=== PATIENT | female | born 1960 | race Caucasian/White ===

== ENCOUNTER 2016-08-14 13:01 | Day surgery (SDC) | payer MEDICAID ==
[~2016-08-14] VITALS: Ht 165.1 cm; Wt 71.7 kg
[~2016-08-14 13:01] MED LIST: AMLODIPINE BES10 MG PO; CYCLOBENZAPRINE10 M2 PO; DIAZEPAM5 MG PO; GABAPENTIN300 M1 PO; HYDROCODONE BIT1 T45 PO; HYDROCODONE-APA1 TA1 PO; LORTAB 5/3251 TAB PO; NAPROSYN 500MG500 MG PO; PEN-VK500 MG PO; ROBAXIN-750750 MG PO; TRAZODONE HCL100 MG PO; VALIUM 5MG TABLE5 MG PO; WELLBUTRIN 100100 M1 PO; WELLBUTRIN 150150 MG PO
[2016-08-14 13:24] VITALS: BP 166/91
[2016-08-14] MEDS ORDERED: WELLBUTRIN 150150 MG PO (13:34)
[2016-08-14 13:50] VITALS: BP 166/91
[2016-08-14 14:00] VITALS: BP 139/89
--- NOTE | 2016-08-14 14:07 | Procedure Note ---
Procedure detail Date of procedure: 08/14/16 Anesthesiologist: Behzad Francis CRNA Complications: None Pre-procedure diagnosis: Cervical Facet Arthropathy Post-procedure diagnosis: Same Indications for procedure: This patient's pleasant 56-year-old white female that we've been treating her pain clinic for chronic cervical neck pain secondary to degenerative disc disease cervical spine multiple levels with cervical spondylosis. Multilevel cervical facet arthropathy. Patient is status post 2 rounds of cervical medial branch block which she reports significant improvement. Her last round was January 2016. Patient presents to the clinic today with increased pain cervical neck. She describes it as constant, dull, aching. She rates the pain in neck 6/10. She is having difficulty looking LEFT and RIGHT as well as flexion and extension intensifies the pain. Also, patient having with resection from the RIGHT breast secondary to mass. She is extremely nervous about this. She wants to repeat the branch blocks cervical spine but in the near future after recovering from surgery tomorrow. We will perform a therapeutic medial branch block today Procedure detail: Informed consent was obtained and the risk and benefits of the procedure was explained to the patient. Patient was taken to the procedure room where noninvasive monitors were placed, including noninvasive blood pressure cuff as well as pulse oximeter. Markers were placed over the facet joints at C5-6, C6-7, C7-T1 bilaterally. The area over the posterior cervical spine was cleansed using chlorhexidine as a cleansing solution. I anesthetized the skin and subcutaneous tissues with 1% Lidocaine at each marker site. I placed 22-gauge spinal needles into the facet joint/ medial branches of C5-C6, C6-C7, C7-T1 bilaterally. Needle placement was confirmed with fluoroscopy. After confirmation of needle placement , each site was injected with 1 mL of 1% lidocaine and 0.25 % Marcaine and 10 mg of Depo-Medrol. A total of 80 mg of depo medrol was used for bilateral medial branch blocks of C5-C6, C6-C7, C7-T1 bilaterally. Patient tolerated the procedure without difficulty. There were no complications. Plan and disposition: I am patient was reevaluated 10 minutes post procedure. Patient reports 90 percent improvement terms for cervical neck pain in flexion, extension, RIGHT and LEFT rotation. We will follow up with this patient in our clinic and reassess her symptoms at that time at [id number]
[2016-08-17] MEDS ORDERED: HYDROCODONE BIT1 T45 PO (10:57)
[2016-09-10] MEDS ORDERED: ANASTROZOLE (13:36)
[2016-09-10] MEDS ORDERED: HYDROCODONE BIT1 T45 PO (13:45)
== END 2016-08-14 14:30 ==
LOC: PM 13:01
PROC: 3E0T3BZ Introduction of Anesthetic Agent into Peripheral Nerves and Plexi, Percutaneous Approach (ICD-10-PCS; principal; 2016-08-14)
PROC: 3E0T33Z Introduction of Anti-inflammatory into Peripheral Nerves and Plexi, Percutaneous Approach (ICD-10-PCS; 2016-08-14)
DX: M46.92 Unspecified inflammatory spondylopathy, cervical region (principal)
CPT/HCPCS: J1040

== ENCOUNTER → 2016-11-20 | Outpatient (CLI) | payer MEDICAID ==
[~2016-11-20] MED LIST changes: +ANASTROZOLE
[2016-11-20 13:26] LABS: AMPHETAMINES/METAMPHETAMINES NEGATIVE ng/mL (<1000)
== END ==
LOC: LAB 11:21
PROVIDERS: Anesthesiology
DX: Z79.899 Other long term (current) drug therapy (principal)

== ENCOUNTER 2016-12-04 13:00 | Day surgery (SDC) | payer MEDICAID ==
[~2016-12-04] VITALS: Ht 165.1 cm; Wt 74.8 kg
[2016-12-04 13:34] VITALS: BP 125/78
[2016-12-04 13:58] VITALS: BP 125/78
[2016-12-04 13:59] VITALS: BP 135/87
--- NOTE | 2016-12-04 14:09 | Procedure Note ---
Procedure detail Date of procedure: 12/04/16 Anesthesiologist: Behzad Francis CRNA Complications: None Pre-procedure diagnosis: Degenerative Disc Disease of lumbar spine Post-procedure diagnosis: Same Indications for procedure: This patient's a pleasant 56-year-old white female were treating her pain clinic for chronic cervical and lumbar back pain. Patient most recently had medial branch block cervical spine C5-6, C6-7, C7-T1 bilaterally. She reports to me 50 percent improvement terms her cervical neck pain in flexion, extension, LEFT and RIGHT rotation. Patient's main combined today is lumbar back pain with LEFT hip and leg radiation at times. Patient describes the pain as constant, dull, aching. She rates the pain 8/10. Patient received lumbar epidural steroid injection December 2015 with significant improvement terms her low back pain as well as LEFT hip and leg pain. She wishes to repeat this today. Procedure detail: Procedure: Lumbar epidural steroid injection under fluoroscopy Informed consent was obtained and the risks and benefits of the procedure were explained to the patient. The patient was taken to the procedure room and noninvasive monitors placed, including noninvasive blood pressure cuff and pulse oximeter. The back was viewed using C-arm Fluoroscopy and prepped using Betadine as a cleansing solution and the L4-L5 interspace was palpated. Skin and subcutaneous tissues were anesthetized using lidocaine 1.5% and a 25-gauge needle. After this, an 18-gauge Touhy epidural needle was placed into the L4-L5 interspace and advanced using fluoroscopic guidance and loss of resistance to air until the epidural space was encountered. After confirmation of needle placement in the epidural space, with dye, a solution containing lidocaine 1.5%, 4 mL and Depo-Medrol 80 mg were incrementally injected into the lumbar epidural space. The patient tolerated the procedure well with no complications. The patient was observed in the Pain Clinic and then discharged home neurologically intact. Plan and disposition: Patient was evaluated 10 minutes post procedure. She is doing very well. She'll return to see us in the pain clinic for further evaluation. at 1402
[2016-12-04 14:20] VITALS: BP 143/86
== END 2016-12-04 14:20 ==
LOC: PM 13:00
PROC: 3E0R3BZ Introduction of Anesthetic Agent into Spinal Canal, Percutaneous Approach (ICD-10-PCS; principal; 2016-12-04)
PROC: 3E0R33Z Introduction of Anti-inflammatory into Spinal Canal, Percutaneous Approach (ICD-10-PCS; 2016-12-04)
DX: M51.36 Other intervertebral disc degeneration, lumbar region (principal)
CPT/HCPCS: J1040; Q9966

== ENCOUNTER → 2017-05-29 | Outpatient (CLI) | payer MEDICAID ==
--- NOTE | 2017-05-29 11:59 | RADIOLOGY REPORT PS360 ---
CHEST(2 VIEWS-NOT PORTABLE) HISTORY COUGH ORDERING PHYSICIAN: Min Garcia MD PATIENT AGE: 57 years COMPARISON: None available FINDINGS: The cardiomediastinal silhouette and pulmonary vascularity are within normal limits. The lungs are clear without infiltrates, suspicious nodules, or pleural effusions. No acute bony abnormalities. Surgical clips are present in the right lateral breast area. IMPRESSION: Negative chest, no acute finding
== END ==
LOC: RAD 11:23
DX: R05 Cough (principal)